=== PATIENT | female | born 1945 | race African-American/Black ===

== ENCOUNTER → 2017-01-16 | Outpatient (CLI) | payer MEDICARE, MEDICAID ==
[~2017-01-16] MED LIST: AMLO1TAB64; ASPI325T2; ATOR20TA65; BENA5TAB3; BUPR-84; LINA5TAB; METO25TA3; TRAVO BOTHEYE; VENL-180; ZIPR40CA13
== END | disposition home or self-care (01) ==
LOC: US 10:25
PROVIDERS: ATTEND Internal Medicine Nephrology
DX: N18.3 Chronic kidney disease, stage 3 (moderate) (principal); N28.1 Cyst of kidney, acquired; K80.80 Other cholelithiasis without obstruction
CPT/HCPCS: 76770